=== PATIENT | female | born 2000 | race Caucasian/White ===

== ENCOUNTER 2018-12-15 09:40 | Emergency (ER) | payer BC, MEDICAID ==
[~2018-12-15] VITALS: Ht 157.5 cm; Wt 70.5 kg
[2018-12-15 10:06] VITALS: BP 133/44
== END 2018-12-15 11:11 | disposition home or self-care (01) ==
LOC: ER 09:41
DX: N91.2 Amenorrhea, unspecified (principal); Z88.5 Allergy status to narcotic agent
CPT/HCPCS: 99281